=== PATIENT | female | born 1955 | race Caucasian/White ===

== ENCOUNTER 2018-01-15 07:46 | Outpatient (CLI) | payer BC, SELFPAY ==
[2018-01-16 11:00] LABS: Hepatitis C Ab w Rflx HCV PCR Negative (NEGAT)
[2018-01-16 11:06] LABS: HIV-1/2 Ag & Ab Screen Negative (NEGAT)
== END 2018-01-15 08:06 ==
PROVIDERS: PCP Internal Medicine; Visit Provider Internal Medicine
DX: Z11.59 Encounter for screening for other viral diseases (principal); Z11.4 Encounter for screening for human immunodeficiency virus [HIV]
CPT/HCPCS: 36415; 86803; 87389

== ENCOUNTER 2018-01-28 01:31 | Outpatient (CLI) | payer BC, SELFPAY ==
--- NOTE | 2018-01-28 08:30 | DI.MAMMO_ITS ---
SYMPTOMS/DIAGNOSIS: SCREENING, Z12.31 MAMMOGRAMS: Mammograms were interpreted according to the usual protocol including computer analysis with CAD system, tomosynthesis and C view imaging. Comparison is with the prior examinations. No suspicious masses or microcalcifications are seen. There has been no significant change in size of the nodular density in the upper outer quadrant of the right breast. This has been present dating back to the oldest mammogram in 2010. IMPRESSION: No evidence for malignancy. Yearly mammography is recommended. Category 2. Breast density A. MQSA ASSESSMENT OF FINDINGS: Negative with benign findings. Category 2. Patient will receive a letter notifying them of these results. BI-RAD category A. The breasts are almost entirely fatty.
== END 2018-01-28 01:51 ==
PROVIDERS: PCP Internal Medicine; Visit Provider Internal Medicine
DX: Z12.31 Encounter for screening mammogram for malignant neoplasm of breast (principal)
CPT/HCPCS: 77063; 77067

== ENCOUNTER 2018-03-12 08:16 | Day surgery (SDC) | payer BC, SELFPAY ==
[2018-03-12 08:41] VITALS: BP 147/81; PULSE 81; RESP 16; TEMP 35.6; O2SAT 98
[2018-03-12] MEDS: Lactated Ringers 1,000 ML 30 ML IV (08:52)
--- NOTE | 2018-03-12 11:09 | W.COLOREPORT ---
Date of service: 03/12/18 Time of Service: 11:10 Colonoscopy Report Date of procedure: 03/12/18 Pre-op diagnosis general: screening colonoscopy Post-op diagnosis procedure note: other (diverticulosis) Procedure: screening colonoscopy Surgeon: Inderjit Alfred III Anesthesia proc note operative: MAC Pathology: none sent Complications: None Disposition: PACU Prep: Marcelina Findings: Diverticulum Procedure Description: After informed consent was obtained the patient was taken to the procedure room and placed in a left decubitous position. Monitors were applied and a time out was done. The patients name, date of , procedure, allergies to medications and metal in their body was reviewed. The patient was then sedated. Once sedated and comfortable a rectal exam was done. External exam was normal. Internal exam revealed a normal sphincter tone and no palpable masses. The scope was then introduced and retrofelexed. no internal hemorrhoids were identified. The scope was then advanced to the cecum moderate difficulty. The TI and appendiceal orifice were identified. The prep was adequately. The scope was then slowly retracted over 10 minutes back into the rectum. No Polyps were removed. The scope was removed and the patient was woken up and taken back to Same day surgery in stable condition. The patient tolerated the procedure well and there were no immediate complications. Follow up: The patient should follow up in 10 years unless they develop changes in bowel habits or other new gastrointestinal complaints.
--- NOTE | 2018-03-12 11:12 | W.PM.DSUDISC ---
Discharge Plan Disposition Patient Disposition: HOME Condition: Stable Discharge Details Reason For Visit: Screening colonoscopy Attending Provider: Inderjit Alfred III Primary Care Provider: Carmelita Tan Home Meds and New Rx's Prescriptions: Continued bisacodyl [Dulcolax (bisacodyl)] 5 mg tablet,delayed release (DR/EC) 5 mg PO ONCE Qty: 4 RF: 0 polyethylene glycol 3350 17 gram/dose powder 255 g PO ONCE Qty: 255 RF: 0 CALCIUM 600 + D TABLET 1 EACH tablet 1 ea PO DAILY RF: 0 B-100 Complex 100 MG tablet extended release 100 mg PO DAILY RF: 0 chromium picolinate 400 MCG tablet 800 mcg PO DAILY RF: 0 omega-3 fatty acids-fish oil [Fish Oil] 1 EACH capsule 3,000 ea PO DAILY RF: 0 melatonin 5 MG tablet 10 mg PO HS RF: 0 turmeric 400 mg Capsule 400 mg PO BID RF: 0 Discharge Instructions Activity:: Activity as Tolerated Diet:: As Tolerated Discharge Orders Discharge Orders: Discharge Order (Routine); Ordered 03/12/18 Ordered By: Inderjit Alfred III DS: Diagnosis Discharge Diagnosis (1) Encounter for screening colonoscopy: Status: Acute (2) Diverticular disease of colon: Status: Acute
[2018-03-12 11:44] VITALS: BP 125/68; PULSE 65; RESP 16; TEMP 35.8; O2SAT 99
== END 2018-03-12 12:29 | disposition home or self-care (01) ==
PROVIDERS: PCP Internal Medicine; Visit Provider Surgery
PROC: 0DJD8ZZ Inspection of Lower Intestinal Tract, Via Natural or Artificial Opening Endoscopic (ICD-10-PCS; CPT 45378; principal; 2018-03-12 09:00)
DX: Z12.11 Encounter for screening for malignant neoplasm of colon (principal); K57.30 Diverticulosis of large intestine without perforation or abscess without bleeding; G47.33 Obstructive sleep apnea (adult) (pediatric)
CPT/HCPCS: 45378

== ENCOUNTER 2019-03-03 08:36 | Outpatient (CLI) | payer MEDICARE, BC, SELFPAY ==
[2019-03-03 10:02] LABS: Calculated LDL 85 mg/dL; Cholesterol 203 mg/dL (<200); HDL Cholesterol 108 mg/dL (40-60); Triglyceride 54 mg/dL (<150)
== END 2019-03-03 08:56 ==
PROVIDERS: PCP Internal Medicine; Visit Provider Internal Medicine
DX: Z00.00 Encounter for general adult medical examination without abnormal findings (principal); Z13.220 Encounter for screening for lipoid disorders
CPT/HCPCS: 36415; 80061

== ENCOUNTER 2019-03-23 01:56 | Outpatient (CLI) | payer MEDICARE, BC, SELFPAY ==
--- NOTE | 2019-03-23 16:55 | DI.DEXA_ITS ---
EXAM: XR DEXA BONE DENSITY W/WO KOLTON INDICATION: screening for osteoporosis Z78.0. COMPARISON: No exams were available for comparison TECHNIQUE: 2D digital imaging was performed. FINDINGS: The lateral image shows no compression deformities. Evaluation of the left hip shows a total T-score of -0.2 and a Z-score of 1.0. This is within normal limits. Evaluation of the lumbar spine shows a total T-score of -0.3 and a Z-score of 1.5. This is within no rmal limits. There is no evidence of osteoporosis. IMPRESSION: No evidence of osteoporosis.
== END 2019-03-23 02:16 ==
PROVIDERS: PCP Internal Medicine; Visit Provider Internal Medicine
DX: Z13.820 Encounter for screening for osteoporosis (principal); Z78.0 Asymptomatic menopausal state
CPT/HCPCS: 77080

== ENCOUNTER → 2019-04-12 09:26 | Outpatient (BNVA) | payer MEDICARE, BC, SELFPAY | PROVIDERS: PCP Internal Medicine; Referring Provider Internal Medicine; Visit Provider Nurse Practitioner Adult Health | DX: G31.84 Mild cognitive impairment of uncertain or unknown etiology (principal); F32.9 Major depressive disorder, single episode, unspecified | CPT/HCPCS: 99213 ==

== ENCOUNTER → 2019-08-03 09:27 | Outpatient (BNVA) | payer MEDICARE, BC, SELFPAY | PROVIDERS: PCP Internal Medicine; Referring Provider Internal Medicine; Visit Provider Nurse Practitioner Adult Health | DX: G31.84 Mild cognitive impairment of uncertain or unknown etiology (principal); F32.9 Major depressive disorder, single episode, unspecified | CPT/HCPCS: 99213 ==

== ENCOUNTER → 2019-09-28 13:26 | Outpatient (BNVA) | payer MEDICARE, BC, SELFPAY | PROVIDERS: PCP Internal Medicine; Referring Provider Internal Medicine; Visit Provider Nurse Practitioner Adult Health | DX: F03.90 Unspecified dementia, unspecified severity, without behavioral disturbance, psychotic disturbance, mood disturbance, and anxiety (principal) | CPT/HCPCS: 99213 ==

== ENCOUNTER → 2019-11-09 08:58 | Outpatient (BNVA) | payer MEDICARE, BC, SELFPAY | PROVIDERS: PCP Internal Medicine; Referring Provider Internal Medicine; Visit Provider Nurse Practitioner Adult Health | DX: F03.90 Unspecified dementia, unspecified severity, without behavioral disturbance, psychotic disturbance, mood disturbance, and anxiety (principal); F41.9 Anxiety disorder, unspecified | CPT/HCPCS: 99213 ==

== ENCOUNTER 2019-11-10 01:12 | Outpatient (CLI) | payer MEDICARE, BC, SELFPAY ==
--- NOTE | 2019-11-10 12:00 | DI.MAMMO_ITS ---
EXAM: MG MAMMO SCREENING CLINICAL HISTORY: screening,Z12.39 TECHNIQUE: Bilateral full field digital CC and MLO mammographic images were obtained with 3D tomosyn thesis and utilizing computer aided detection (CAD). COMPARISON: Available for comparison. FINDINGS: Masses/Architectural Distortion: There has been interval increase in size of a nodule in the outer le ft breast on the CC view. Currently the nodule measures 6 mm. Bilateral nodules are seen. Microcalcifications: No suspicious pleomorphic-type are seen. Skin Thickening/Nipple Retraction: None. IMPRESSION: 1. Interval increase in size of left breast nodule. 2. Additional views and a left breast ultrasound requested for further evaluation. BI-RADS Category 0 - Assessment Incomplete: Need additional imaging evaluation Breast Density - Category A - Almost entirely fatty A negative radiographic report should not delay biopsy if a dominant or clinically suspicious mass is present. Up to ten percent of cancers are not identified on mammography. A negative report may reinforce clinical impression. Adenosis and dense breasts may obscure an underlying neoplasm. False positive reports average 6 to 10%. Patient will receive a letter notifying them of these results.
== END 2019-11-10 01:32 ==
PROVIDERS: PCP Internal Medicine; Visit Provider Internal Medicine
DX: Z12.31 Encounter for screening mammogram for malignant neoplasm of breast (principal); N63.20 Unspecified lump in the left breast, unspecified quadrant
CPT/HCPCS: 77063; 77067

== ENCOUNTER 2019-11-16 01:44 | Outpatient (CLI) | payer MEDICARE, BC, SELFPAY ==
--- NOTE | 2019-11-16 | DI.MAMMO_ITS ---
EXAM: MG MAMMO SCREEN CALL BACK UNI CLINICAL HISTORY: F/U MAMMO, INTERVAL INCREASE IN NODULE OUTER LT BREAST ON CC VIEW TECHNIQUE: Spot compression views including C- View and tomographic imaging were performed. COMPARISON: 2012 through November 06. FINDINGS: Left CC spot compression view with tomography: . No suspicious masses or suspicious microcalcifications are seen. No persistent abnormality is seen on the additional views performed. The findings are consistent wit h overlying fibroglandular tissue. There has been no significant change from prior exams. Left breast ultrasound: The central and lateral portions of the breast were scanned. No cyst or mass is identified. IMPRESSION: BI-RADS Category 2 - Benign Findings Yearly screening mammography is recommended. Breast Density - Category A - Almost entirely fatty
== END 2019-11-16 02:04 ==
PROVIDERS: PCP Internal Medicine; Visit Provider Internal Medicine
DX: R92.8 Other abnormal and inconclusive findings on diagnostic imaging of breast (principal)
CPT/HCPCS: 76642; 77063; 77067

== ENCOUNTER → 2020-02-01 07:25 | Outpatient (BNVA) | payer MEDICARE, BC, SELFPAY | PROVIDERS: PCP Internal Medicine; Referring Provider Internal Medicine; Visit Provider Nurse Practitioner Adult Health | DX: F03.90 Unspecified dementia, unspecified severity, without behavioral disturbance, psychotic disturbance, mood disturbance, and anxiety (principal) | CPT/HCPCS: 99213; 99441 ==

== ENCOUNTER → 2020-05-02 12:29 | Outpatient (BNVA) | payer MEDICARE, BC, SELFPAY | PROVIDERS: PCP Internal Medicine; Referring Provider Internal Medicine; Visit Provider Nurse Practitioner Adult Health | DX: F03.90 Unspecified dementia, unspecified severity, without behavioral disturbance, psychotic disturbance, mood disturbance, and anxiety (principal); Z79.899 Other long term (current) drug therapy | CPT/HCPCS: 99213; 99214 ==

== ENCOUNTER → 2020-06-13 07:27 | Outpatient (BNVA) | payer MEDICARE, BC, SELFPAY | PROVIDERS: PCP Internal Medicine; Referring Provider Internal Medicine; Visit Provider Nurse Practitioner Adult Health | DX: F03.90 Unspecified dementia, unspecified severity, without behavioral disturbance, psychotic disturbance, mood disturbance, and anxiety (principal); Z79.899 Other long term (current) drug therapy | CPT/HCPCS: 99212; 99442 ==

== ENCOUNTER → 2020-10-25 11:02 | Outpatient (BNVA) | payer MEDICARE, BC, SELFPAY | PROVIDERS: PCP Internal Medicine; Referring Provider Internal Medicine; Visit Provider Nurse Practitioner Adult Health | DX: F03.90 Unspecified dementia, unspecified severity, without behavioral disturbance, psychotic disturbance, mood disturbance, and anxiety (principal); R19.7 Diarrhea, unspecified; G47.30 Sleep apnea, unspecified | CPT/HCPCS: 99213; 99214 ==

== ENCOUNTER 2020-11-10 03:23 | Outpatient (CLI) | payer MEDICARE, BC, SELFPAY ==
--- NOTE | 2020-11-10 08:15 | DI.MAMMO_ITS ---
Exam(s) MAMMO SCREENING EXAM: MAMMO SCREENING CLINICAL HISTORY: screening,z12.39 TECHNIQUE: Bilateral full field digital CC and MLO mammographic images were obtained with 3D tomosyn thesis and utilizing computer aided detection (CAD). COMPARISON: Available for comparison. FINDINGS: Masses/Architectural Distortion: None seen. Stable asymmetric breast tissue in the retroareolar regio n of the left breast. Stable nodular opacity in the upper outer quadrant of the right breast. Microcalcifications: No suspicious pleomorphic-type are seen. Skin Thickening/Nipple Retraction: None. IMPRESSION: 1. No significant interval change with no specific features of malignancy noted. 2. Unless there is more urgent need, screening mammography is recommended, as per [employer] guidelines. BI-RADS Category 2 - Benign Findings Breast Density - Category B - Scattered areas of fibroglandular density Breast density category C or D implies that the patient has dense breast tissue. Dense breast tissue is very common and is not abnormal but dense breast tissue can make it harder to find cancer on a ma mmogram. Also, dense breast tissue may increase their breast cancer risk. This information about the result of the mammogram report was provided to the patient to raise their awareness. Use this report when you speak with the patient about their risks for breast cancer, which includes their family hist ory. At that time, you may recommend for more screening tests (Ultrasound or MRI) as they might be us eful based on their risk. A negative radiographic report should not delay biopsy if a dominant or clinically suspicious mass is present. Up to ten percent of cancers are not identified on mammography. A negative report may reinforce clinical impression. Adenosis and dense breasts may obscure an underlying neoplasm. False positive reports average 6 to 10%. Patient will receive a letter notifying them of these results.
== END 2020-11-10 03:43 ==
PROVIDERS: PCP Internal Medicine; Visit Provider Internal Medicine
DX: Z12.31 Encounter for screening mammogram for malignant neoplasm of breast (principal)
CPT/HCPCS: 77063; 77067

== ENCOUNTER → 2020-11-29 11:12 | Outpatient (BNVA) | payer MEDICARE, BC, SELFPAY | PROVIDERS: PCP Internal Medicine; Visit Provider Psychiatry & Neurology Neurology | DX: F03.90 Unspecified dementia, unspecified severity, without behavioral disturbance, psychotic disturbance, mood disturbance, and anxiety (principal); G47.52 REM sleep behavior disorder | CPT/HCPCS: 99213 ==

== ENCOUNTER → 2021-05-30 10:58 | Outpatient (BNVA) | payer MEDICARE, BC, SELFPAY | PROVIDERS: PCP Internal Medicine; Visit Provider Nurse Practitioner Adult Health | DX: F03.90 Unspecified dementia, unspecified severity, without behavioral disturbance, psychotic disturbance, mood disturbance, and anxiety (principal) | CPT/HCPCS: 99213 ==

== ENCOUNTER → 2021-11-28 12:30 | Outpatient (BNVA) | payer MEDICARE, BC, SELFPAY | PROVIDERS: PCP Internal Medicine; Referring Provider Internal Medicine; Visit Provider Nurse Practitioner Adult Health | DX: F03.90 Unspecified dementia, unspecified severity, without behavioral disturbance, psychotic disturbance, mood disturbance, and anxiety (principal) | CPT/HCPCS: 99213 ==

== ENCOUNTER 2021-12-24 02:29 | Outpatient (CLI) | payer MEDICARE, BC, SELFPAY ==
[2021-12-24 10:21] LABS: Anion Gap 6.3 mmol/L (3-11); BUN 17 mg/dL (7-18); CO2 32.7 mmol/L (21.0-32.0); CREATININE 0.9 mg/dL (0.55-1.02); Calcium 9.5 mg/dL (8.5-10.1); Chloride 104 mmol/L (98-107); Estimated GFR 70.07 (mL/min/1.73m2); Glucose 90 mg/dL (74-106); Potassium 3.5 mmol/L (3.5-5.1); Sodium 143 mmol/L (136-145)
== END 2021-12-24 02:30 | disposition home or self-care (01) ==
LOC: LBO 02:29
PROVIDERS: PCP Internal Medicine; Visit Provider Nurse Practitioner Adult Health
DX: F03.90 Unspecified dementia, unspecified severity, without behavioral disturbance, psychotic disturbance, mood disturbance, and anxiety (principal); F32.9 Major depressive disorder, single episode, unspecified; F41.9 Anxiety disorder, unspecified; Z51.81 Encounter for therapeutic drug level monitoring
CPT/HCPCS: 36415; 80048

== ENCOUNTER → 2022-01-01 02:54 | Outpatient (CLI) | payer MEDICARE, BC, SELFPAY ==
--- NOTE | 2022-01-01 07:30 | DI.MAMMO_ITS ---
Exam(s) MAMMO SCREENING EXAM: MAMMO SCREENING CLINICAL HISTORY: screening,z12.39. TECHNIQUE: Bilateral full field digital CC and MLO mammographic images were obtained with 3D tomosyn thesis and utilizing computer aided detection (CAD). COMPARISON: Prior mammograms were reviewed, dating back to 2012. FINDINGS: There has been no significant change in the appearance and distribution of the fibroglandular tissue. Nodular density in the upper-outer quadrant of the right breast is unchanged from 2013 and therefore benign. In addition asymmetric density in the left breast is also unchanged from 2013 and therefore benign. There are no new spiculated masses nor malignant appearing microcalcification groups. There is no significant architectural distortion nor skin thickening-retraction. IMPRESSION: No radiographic evidence of malignancy. Stable benign findings. BI-RADS Category 2 - Benign Findings Breast Density - Category B - Scattered areas of fibroglandular density Breast density Category C or D implies that the patient has dense breast tissue. Dense breast tissue can make it harder to find cancer on a mammogram. Dense breast tissue is also associated with an incr eased risk of breast cancer. This information about the result of the mammogram report was provided to the patient to raise their awareness. Use this report when you speak with the patient about their risks for breast cancer, which includes their family history. At that time, you may recommend additional screening tests (Ultrasoun d or MRI) as these tests may add significant information. A negative radiographic report should not delay biopsy if a dominant or clinically suspicious mass is present. Up to ten percent of cancers are not identified on mammography. A negative report may reinforce clinical impression. Adenosis and dense breasts may obscure an underlying neoplasm. False positive reports average 6 to 10%. Patient will receive a letter notifying them of these results.
== END ==
PROVIDERS: PCP Internal Medicine; Visit Provider Nurse Practitioner Adult Health
DX: F03.90 Unspecified dementia, unspecified severity, without behavioral disturbance, psychotic disturbance, mood disturbance, and anxiety (principal); F32.9 Major depressive disorder, single episode, unspecified; F41.9 Anxiety disorder, unspecified; Z12.31 Encounter for screening mammogram for malignant neoplasm of breast; Z51.81 Encounter for therapeutic drug level monitoring
CPT/HCPCS: 77063; 77067

== ENCOUNTER → 2022-05-29 10:58 | Outpatient (BNVA) | payer MEDICARE, BC, SELFPAY | PROVIDERS: PCP Nurse Practitioner Adult Health; Visit Provider Nurse Practitioner Adult Health | DX: G30.9 Alzheimer's disease, unspecified (principal); F02.83 Dementia in other diseases classified elsewhere, unspecified severity, with mood disturbance | CPT/HCPCS: 99213; 99214 ==

== ENCOUNTER → 2022-07-24 15:26 | Outpatient (BNVA) | payer MEDICARE, BC, SELFPAY | PROVIDERS: PCP Nurse Practitioner Adult Health; Referring Provider Nurse Practitioner Adult Health; Visit Provider Nurse Practitioner Adult Health | DX: G30.9 Alzheimer's disease, unspecified (principal); F02.83 Dementia in other diseases classified elsewhere, unspecified severity, with mood disturbance | CPT/HCPCS: 99213 ==

== ENCOUNTER → 2022-11-19 09:58 | Outpatient (BNVA) | payer MEDICARE, BC, SELFPAY | PROVIDERS: PCP Nurse Practitioner Adult Health; Referring Provider Nurse Practitioner Adult Health; Visit Provider Nurse Practitioner Adult Health | DX: G30.9 Alzheimer's disease, unspecified (principal); F02.83 Dementia in other diseases classified elsewhere, unspecified severity, with mood disturbance | CPT/HCPCS: 99213 ==

== ENCOUNTER 2023-04-06 18:06 | Emergency (ER) | payer MEDICARE, BC, SELFPAY ==
[2023-04-06 18:06] VITALS: BP 143/68; PULSE 60; RESP 17; TEMP 36.3; O2SAT 98
--- NOTE | 2023-04-06 18:45 | DI.CT_ITS ---
Exam(s) CT HEAD CERV SPINE FACIAL WO EXAM: CT HEAD CERV SPINE FACIAL WO CLINICAL HISTORY: fall getting out of shower. TECHNIQUE: Imaging Protocol: Axial computed tomography images with coronal and sagittal reformatted images were created and reviewed COMPARISON: MR MRI - BRAIN WO CONTRAST from 02/28/2017 FINDINGS: CT Head: Ventricles and Extra axial spaces: Normal in size and morphology for the patient's age. Hemorrhage: None. Cerebral parenchyma: Normal. Midline shift: None. Brainstem/Cerebellum: Normal. Calvarium: Normal. Visualized Paranasal sinuses/Mastoids: Clear. Soft Tissues: Unremarkable. CT Face: There is artifact from the patient's dental work. Facial Bones: No definite fracture is noted in facial bones. Sinuses and Mastoids: Unremarkable. Globes, extraocular muscles, optic nerves and retrobulbar fat: Normal. Upper aerodigestive tract: Normal. Mandible and bilateral temporomandibular joints: Normal. Soft tissues: There is soft tissue edema overlying the right cheek. No focal fluid collection is see n. CT Cervical Spine: Bones: No acute fracture or subluxation. Degenerative changes are present throughout the cervical spi ne. There is reversal of the normal cervical lordosis. Soft Tissues: Unremarkable. Lung Apices: Clear. IMPRESSION: 1. No acute intracranial process. 2. No acute fracture or subluxation in the cervical spine. 3. No acute facial fracture. 4. There is mild edema in the soft tissues overlying the right cheek. RADIATION DOSE DELIVERED: 1,524.9mGy.cm Total DLP DATA REPOSITORY: All CT scans at this facility are submitted to the National Radiology Data Registry (NRDR) Dose Index Registry (DIR) with the [employer] ([employer]). RADIATION OPTIMIZATION: All CT scans at this facility use at least one of these dose optimization te chniques: automated exposure control; mA and/or kV adjustment per patient size (includes targeted exa ms where dose is matched to clinical indication); or iterative reconstruction.
--- NOTE | 2023-04-06 18:46 | W.ED.GENAD ---
HPI General Date/Time Provider Initiated Documentation: 04/06/23 18:20. HPI Narrative: 68 year-old female presents to ED today by POV/ambulating with her with a chief complaint of trip & fall getting out of the shower, hitting her R cheek during the fall, no LOC, no post-episode emesis- patient has dementia and is acting herself with onset just prior to arrival. Quality described as R cheek pain with a very mild bruise starting to form, no radiation to neck pain, severe headache, other trauma, alteration from baseline. Severity is described as unable to quantify. Palliating factors include nothing specific attempted. Provoking factors include nothing specific. Patient not anticoagulated. Related Data Home Medications Medication Instructions Recorded Confirmed vit B complex 100 combo no.2 100 100 mg PO DAILY 12/06/15 11/27/22 mg tablet,extended release (B-100 Complex ER) turmeric 400 mg capsule 400 mg PO BID 03/12/18 11/27/22 melatonin 5 mg tablet 15 mg PO HS PRN 04/12/19 11/27/22 cholecalciferol (vitamin D3) 50 50 mcg PO DAILY 02/29/20 11/27/22 mcg (2,000 unit) capsule omega-3 fatty acids 1,000 mg 2,000 mg PO DAILY 09/19/20 11/27/22 capsule calcium carbonate 600 mg-vitamin cap PO DAILY 11/29/20 11/27/22 D3 12.5 mcg (500 unit) capsule (Calcium 600 with Vitamin D3) chromium picolinate 400 mcg tablet 800 mcg PO DAILY 11/29/20 11/27/22 lactobacillus combination no.4 3 3,000 mmu cells PO DAILY 09/18/21 11/27/22 billion cell capsule (Probiotic) donepezil 10 mg tablet 10 mg PO QHS #90 tabs 03/25/22 11/27/22 bupropion HCl 150 mg 24 hr tablet, 150 mg PO QAM #90 tabs 05/06/22 11/27/22 extended release citalopram 20 mg tablet 20 mg PO DAILY #90 tabs 09/23/22 11/27/22 mirtazapine 7.5 mg tablet 7.5 mg PO QHS #90 tabs 09/23/22 11/27/22 Previous Rx's Medication Instructions Recorded donepezil 10 mg tablet 10 mg PO QHS #90 tabs 03/25/22 bupropion HCl 150 mg 24 hr tablet, 150 mg PO QAM #90 tabs 05/06/22 extended release citalopram 20 mg tablet 20 mg PO DAILY #90 tabs 09/23/22 mirtazapine 7.5 mg tablet 7.5 mg PO QHS #90 tabs 09/23/22 Allergies Allergy/AdvReac Type Severity Reaction Status Date / Time memantine [From Namenda] AdvReac Intermediate Diarrhea Verified 04/06/23 18:41 General Stated Complaint: FacialProb PATRIA: 3 Review of Systems All systems reviewed & are unremarkable except as noted in HPI and below Exam Narrative Exam Narrative: GENERAL APPEARANCE: Well-nourished, non-toxic, awake and alert, atraumatic, no acute distress. SKIN: Warm, pink, dry, intact, without rashes/lesions/ulcerations. HEAD: Normocephalic, atraumatic- no Torrez's sign, no nasal crepitus, mild R periorbital ecchymosis with stable orbit, normal hair distribution for gender/age. EYES: Pupils PERRLA, EOMs intact without nystagmus, normal conjunctiva, no exudates on lids/lashes. ENT: Nares patent, no circumoral cyanosis, no facial swelling NECK: Supple, trachea midline, painless cervical ROM, no midline vertebral tenderness/crepitus/step-offs. LUNGS/CHEST: Non-labored respirations, normal A/P diameter, symmetrical expansion, no chest wall deformity, no crepitus HEART (CV/PV): No peripheral edema, no JVD. ABDOMEN: Soft, non-distended, no guarding, no tenderness. MSK: Normal ROM, no swelling/deformity to bilateral UEs or LEs, moving all extremities without weakness, no cyanosis, spine midline without tenderness, normal curvature. NEURO: Mental Status baseline per , chronic severe dementia No facial droop, no forehead involvement. Motor: No focal weakness - strength 5/5 in bilateral UEs and LEs, proximal and distal, symmetric. Sensory: sensation intact to light touch globally. Gait normal: patient ambulated without ataxia into ED room. PSYCH: euthymic, cooperative, pleasant, appropriate speech Course Vital Signs Vital signs: Vital Signs Temperature 36.3 C L 04/06/23 18:06 Pulse 60 04/06/23 18:06 Respiratory Rate 17 04/06/23 18:06 Blood Pressure 143/68 H 04/06/23 18:06 Pulse Oximetry 98 04/06/23 18:06 Temperature 36.3 C L 04/06/23 18:06 Temperature Source Temporal Artery Scan 04/06/23 18:06 Pulse 60 04/06/23 18:06 Respiratory Rate 17 04/06/23 18:06 Respiratory Effort Normal 04/06/23 18:37 Blood Pressure 143/68 H 04/06/23 18:06 Blood Pressure Position Sitting 04/06/23 18:06 Pulse Oximetry 98 04/06/23 18:06 Oxygen Delivery Method Room Air 04/06/23 18:06 Oxygen Flow Rate 0 04/06/23 18:06 Medical Decision Making This dictation utilizes [id number] dictation software and may contain unedited grammatical errors. 68 y/o F presents to ED today with a chief complaint of trip & fall getting out of the shower, striking her R cheek, denies LOC, mentating at baseline per with significant dementia, denies neck pain, endorses facial pain, mild headache. Patients' medical history: Cognitive impairment, dementia, otherwise noncontributory. Family and social history: Noncontributory. Pertinent exam findings / vital signs include mild ecchymosis to right orbit area with orbit stable, no midline vertebral tenderness, mentating at baseline, no other trauma noted. Differential / pathologies of concern include ICH, facial fracture, concussion syndrome, vertebral fracture. Diagnostic studies of: -CT of the head, facial bones, cervical spine without contrast. -No acute fractures anywhere soft tissue swelling around the right cheek Interventions of: -None, recommend ice packs and Tylenol for headache, strict return for any sudden onset of vomiting, severe alteration from baseline. Findings not consistent with vertebral fracture, ICH, facial fracture, consistent with bruising to the right orbit from her trip and fall at home. Disposition of Contusion of Face. Patient verbalized understanding of the plan and return to ED criteria and engaged in shared decision making. Medical Records Medical records reviewed: Yes I reviewed the patient's medical records. Imaging Data Radiologic Study: Imaging: CT Scan Radiologist's impression: Exam: CT Head Without Contrast Exam date and time: 04/06/2023 7:14 PM Age: 68 years old Clinical indication: Other: Fall getting out of shower TECHNIQUE: Imaging protocol: Computed tomography of the head without contrast. COMPARISON: MRI - BRAIN WO CONTRAST 02/28/2017 2:58 PM FINDINGS: Brain: There is no evidence of intracranial hemorrhage. No mass effect or midline shift. No territorial edema. Unremarkable white matter. Cerebral ventricles: The ventricles and sulci are appropriate for the patient's age. Paranasal sinuses: There are no air-fluid levels. Mastoid air cells: The visualized mastoid air cells are well aerated. Bones/joints: No acute fracture. Soft tissues: Unremarkable. IMPRESSION: No acute findings. PROCEDURE INFORMATION: Exam: CT Maxillofacial Without Contrast Exam date and time: 04/06/2023 7:14 PM Age: 68 years old Clinical indication: Other: Fall getting out of shower TECHNIQUE: Imaging protocol: Computed tomography of the face without contrast. COMPARISON: MRI - BRAIN WO CONTRAST 02/28/2017 2:58 PM FINDINGS: Limitations: Orthodontic material projects streak artifact that limits evaluation. Orbital cavities: Orbits are normal. Globes are unremarkable. Bones/joints: No acute fracture. Paranasal sinuses: Normal. No air-fluid levels. Soft tissues: Unremarkable. Other findings: Par the anasal sinuses: Normal. No air-fluid levels. IMPRESSION: No acute findings. PROCEDURE INFORMATION: Exam: CT Cervical Spine Without Contrast Exam date and time: 04/06/2023 7:14 PM Age: 68 years old Clinical indication: Other: Fall getting out of shower TECHNIQUE: Imaging protocol: Computed tomography of the cervical spine without contrast. COMPARISON: MRI - BRAIN WO CONTRAST 02/28/2017 2:58 PM FINDINGS: Bones/joints: No acute fracture. There is normal alignment. Multilevel degenerative disc disease without significant spinal canal stenosis. Mild dextroconvex rotoscoliosis.Grade 1 anterolisthesis of C4 without associated fracture, presumed to be degenerative related. There is fusion of the left facets at C4-C5. Lungs: Lung apices are not included. Soft tissues: There are no paraspinal fluid collections or hematoma. IMPRESSION: 1. No evidence of acute fracture or acute traumatic subluxation. 2. Chronic changes as described above. Dictated and Authenticated by: Arley Barlow MD. Ordering:DELORES Valenzuela MD EXAM: CT HEAD CERV SPINE FACIAL WO CLINICAL HISTORY: fall getting out of shower. TECHNIQUE: Imaging Protocol: Axial computed tomography images with coronal and sagittal reformatted images were created and reviewed COMPARISON: MR MRI - BRAIN WO CONTRAST from 02/28/2017 FINDINGS: CT Head: Ventricles and Extra axial spaces: Normal in size and morphology for the patient's age. Hemorrhage: None. Cerebral parenchyma: Normal. Midline shift: None. Brainstem/Cerebellum: Normal. Calvarium: Normal. Visualized Paranasal sinuses/Mastoids: Clear. Soft Tissues: Unremarkable. CT Face: There is artifact from the patient's dental work. Facial Bones: No definite fracture is noted in facial bones. Sinuses and Mastoids: Unremarkable. Globes, extraocular muscles, optic nerves and retrobulbar fat: Normal. Upper aerodigestive tract: Normal. Mandible and bilateral temporomandibular joints: Normal. Soft tissues: There is soft tissue edema overlying the right cheek. No focal fluid collection is seen. CT Cervical Spine: Bones: No acute fracture or subluxation. Degenerative changes are present throughout the cervical spine. There is reversal of the normal cervical lordosis. Soft Tissues: Unremarkable. Lung Apices: Clear. IMPRESSION: 1. No acute intracranial process. 2. No acute fracture or subluxation in the cervical spine. 3. No acute facial fracture. 4. There is mild edema in the soft tissues overlying the right cheek. Quality:SDOH Health Related Social Needs: No Data to Display PFSH All Active Problems (Updated 04/06/23 @ 21:27 by LEVAR Valdovinos) Contusion of face (Acute) Anxiety (Chronic ~09/2021) Dementia (Chronic ~2019) [facility] Neuro Depression (Chronic ~2019) REM sleep behavior disorder (Chronic) Obstructive sleep apnea on CPAP (Chronic ~03/19/17) Medical History Anxiety Diverticular disease of colon (~2018) Elevated blood pressure reading in office with white coat syndrome, without diagnosis of hypertension Elevated at neurologist's, not in PCP's office; anxiety induced Mild cognitive impairment Nocturnal leg cramps Normal colonoscopy (03/12/18) Dr Inderjit Alfred, [facility], Repeat 10 years Surgical History (Reviewed 11/27/22 @ :24 by Cami Zapien NP) Abdominal hysterectomy Family History (Reviewed 11/27/22 @ :24 by Cami Zapien NP) Mother Atherosclerosis of coronary artery Father Closed fracture of hip father of cx from hip fracture Carcinoma of prostate onset age unknown Brother Hypertensive disorder, systemic arterial brother PCKD Social History (Reviewed 11/27/22 @ :24 by Cami Zapien NP) Smoking/Tobacco Use Status: Never Smoking risk assessment performed?: Yes Alcohol Intake: never Drug use: Never Substance use type: does not use Adopted: No Household members: spouse Housing: house Number of Children: 1 number of grandchildren: 1 Communication Needs: Hard of Hearing and Corrective Lenses Education Level: high school current occupation: Retired Pets and animals: Yes Pets and animals: dog(s) Do you think of yourself as: straight/heterosexual Current gender identity: female What is your relationship status?: Panel score (0-1 are the most socially isolated patients): 1 What type of physical activity do you participate in: walking Duration: 15-30 minutes/day Frequency: 5-6 times per week Seatbelt use: always Drive intox or ride w/intox driver education road instructor: No Working smoke detector in home: Yes Fire extinguisher in home: Yes Carbon monox detector in home: Yes Do you feel safe at home: Yes Do you feel safe in your relationship?: Yes Victim of physical abuse: No Victim of emotional abuse: No Victim of sexual abuse: No Discharge Plan Disposition Patient Disposition: Home Condition: Stable Discharge Details Clinical Impression: Contusion of face Primary Care Provider: Cami Zapien ED Provider: Nicolas Carlson Home Meds and New Rx's Prescriptions: Continued cholecalciferol (vitamin D3) 50 mcg (2,000 unit) capsule 50 mcg PO DAILY calcium carbonate-vitamin D3 [Calcium 600 with Vitamin D3] 600 mg(1,500mg) -500 unit capsule PO DAILY Probiotic 3 billion cell capsule 3,000 mmu cells PO DAILY Rx Instructions: administer with a meal citalopram 20 mg tablet 20 mg PO DAILY Qty: 90 3RF Rx Instructions: Note DOSE DECREASE 09/2022 mirtazapine 7.5 mg tablet 7.5 mg PO QHS Qty: 90 3RF B-100 Complex 100 MG tablet extended release 100 mg PO DAILY melatonin 5 mg tablet 15 mg PO HS PRN omega-3 fatty acids 1,000 mg capsule 2,000 mg PO DAILY Rx Instructions: 09/18/20- aim for 2000 mg daily chromium picolinate 400 mcg tablet 800 mcg PO DAILY donepezil 10 mg tablet 10 mg PO QHS Qty: 90 3RF bupropion HCl 150 mg tablet extended release 24 hr 150 mg PO QAM Qty: 90 3RF turmeric 400 mg Capsule 400 mg PO BID Discharge Instructions Instructions: Contusion in Adults (ED) Additional Instructions: You were seen in the emergency department for your 's fall while getting out of the shower, there is no significant intracranial hemorrhage, facial fracture, vertebral fracture of the neck, there is only soft tissue swelling of the right cheek, there is no fracture to the orbit around the eye. Please take Tylenol as needed for pain, apply gentle cool compresses to the area for relief of pain, please return for any other emergent concerns or future falls. Referrals: Cami Zapien NP [Primary Care Provider] - Discharge Data Discharge Date/Time-TO BE ENTERED AT DEPARTURE: 04/06/23 21:35
[2023-04-06 18:54] VITALS: BP 143/68; PULSE 60; RESP 17; TEMP 36.3; O2SAT 98
--- NOTE | 2023-04-06 21:13 | DI.VRAD_ITS ---
PROCEDURE INFORMATION: Exam: CT Head Without Contrast Exam date and time: 04/06/2023 7:14 PM Age: 68 years old Clinical indication: Other: Fall getting out of shower TECHNIQUE: Imaging protocol: Computed tomography of the head without contrast. COMPARISON: MRI - BRAIN WO CONTRAST 02/28/2017 2:58 PM FINDINGS: Brain: There is no evidence of intracranial hemorrhage. No mass effect or midline shift. No territorial edema. Unremarkable white matter. Cerebral ventricles: The ventricles and sulci are appropriate for the patient's age. Paranasal sinuses: There are no air-fluid levels. Mastoid air cells: The visualized mastoid air cells are well aerated. Bones/joints: No acute fracture. Soft tissues: Unremarkable. IMPRESSION: No acute findings. PROCEDURE INFORMATION: Exam: CT Maxillofacial Without Contrast Exam date and time: 04/06/2023 7:14 PM Age: 68 years old Clinical indication: Other: Fall getting out of shower TECHNIQUE: Imaging protocol: Computed tomography of the face without contrast. COMPARISON: MRI - BRAIN WO CONTRAST 02/28/2017 2:58 PM FINDINGS: Limitations: Orthodontic material projects streak artifact that limits evaluation. Orbital cavities: Orbits are normal. Globes are unremarkable. Bones/joints: No acute fracture. Paranasal sinuses: Normal. No air-fluid levels. Soft tissues: Unremarkable. Other findings: Par the anasal sinuses: Normal. No air-fluid levels. IMPRESSION: No acute findings. PROCEDURE INFORMATION: Exam: CT Cervical Spine Without Contrast Exam date and time: 04/06/2023 7:14 PM Age: 68 years old Clinical indication: Other: Fall getting out of shower TECHNIQUE: Imaging protocol: Computed tomography of the cervical spine without contrast. COMPARISON: MRI - BRAIN WO CONTRAST 02/28/2017 2:58 PM FINDINGS: Bones/joints: No acute fracture. There is normal alignment. Multilevel degenerative disc disease without significant spinal canal stenosis. Mild dextroconvex rotoscoliosis.Grade 1 anterolisthesis of C4 without associated fracture, presumed to be degenerative related. There is fusion of the left facets at C4-C5. Lungs: Lung apices are not included. Soft tissues: There are no paraspinal fluid collections or hematoma. IMPRESSION: 1. No evidence of acute fracture or acute traumatic subluxation. 2. Chronic changes as described above. Dictated and Authenticated by: Arley Barlow MD. Ordering:DELORES Valenzuela MD
[2023-04-06 21:55] VITALS: BP 158/70; PULSE 69; TEMP 35.3; O2SAT 98
== END 2023-04-06 21:35 | disposition home or self-care (01) ==
PROVIDERS: Emergency Provider Physician Assistant; PCP Nurse Practitioner Adult Health
DX: S00.83XA Contusion of other part of head, initial encounter (principal); F03.90 Unspecified dementia, unspecified severity, without behavioral disturbance, psychotic disturbance, mood disturbance, and anxiety; W18.2XXA Fall in (into) shower or empty bathtub, initial encounter; Y93.E1 Activity, personal bathing and showering; Y92.012 Bathroom of single-family (private) house as the place of occurrence of the external cause
CPT/HCPCS: 99284; 70450; 70486; 72125

== ENCOUNTER → 2023-05-21 08:56 | Outpatient (BNVA) | payer MEDICARE, BC, SELFPAY | PROVIDERS: PCP Nurse Practitioner Adult Health; Visit Provider Nurse Practitioner Adult Health | DX: G30.9 Alzheimer's disease, unspecified (principal); F02.83 Dementia in other diseases classified elsewhere, unspecified severity, with mood disturbance | CPT/HCPCS: 99215 ==

== ENCOUNTER → 2023-06-23 02:56 | Outpatient (CLI) | payer MEDICARE, BC, SELFPAY ==
--- NOTE | 2023-06-23 07:45 | DI.MAMMO_ITS ---
Exam(s) MG MAMMO SCREENING 60 MIN DUR EXAM: MG MAMMO SCREENING 60 MIN DUR CLINICAL HISTORY: breast cancer screening,Z12.31 TECHNIQUE: Mammograms were interpreted according to the usual protocol including computer analysis w [employer] CAD system, tomosynthesis and C-view imaging. COMPARISON: 2013 through 2021 FINDINGS: The breasts are composed of scattered fibroglandular densities, Breast Density category B. No suspicious masses or suspicious microcalcifications are seen. Stable nodule again noted in the up per outer quadrant of the right breast. Stable asymmetric density in the superior left breast. No skin thickening or abnormal axillary lymph nodes are seen. There has been no significant change from prior exams. IMPRESSION: BI-RADS Category 2 - Negative Mammogram with benign findings. Yearly screening mammography is recomm ended. Breast Density - Category B, scattered fibroglandular densities. A negative radiographic report should not delay biopsy if a dominant or clinically suspicious mass is present. Up to ten percent of cancers are not identified on mammography. A negative report may reinforce clinical impression. Adenosis and dense breasts may obscure an underlying neoplasm. False positive reports average 6 to 10%. Patient will receive a letter notifying them of these results.
== END ==
PROVIDERS: PCP Nurse Practitioner Adult Health; Visit Provider Nurse Practitioner Adult Health
DX: Z12.31 Encounter for screening mammogram for malignant neoplasm of breast
CPT/HCPCS: 77063; 77067

== ENCOUNTER → 2023-12-11 09:58 | Outpatient (BNVA) | payer MEDICARE, BC, SELFPAY | PROVIDERS: PCP Nurse Practitioner Adult Health; Visit Provider Nurse Practitioner Adult Health | DX: G30.9 Alzheimer's disease, unspecified (principal); F02.83 Dementia in other diseases classified elsewhere, unspecified severity, with mood disturbance | CPT/HCPCS: 99215 ==

== ENCOUNTER 2024-06-06 09:19 | Emergency (ER) | payer MEDICARE, BC, SELFPAY ==
--- NOTE | 2024-06-06 09:15 | DI.CT_ITS ---
Exam(s) CT HEAD CERVICAL SPINE WO EXAM: CT HEAD CERVICAL SPINE WO CLINICAL HISTORY: head trauma. TECHNIQUE: Imaging Protocol: Axial computed tomography images with coronal and sagittal reformatted images were created and reviewed COMPARISON: CT CT HEAD CERV SPINE FACIAL WO from 04/06/2023 FINDINGS: BRAIN: There is a large right posterior parietal scalp hematoma/laceration. There is air/gas in the scalp a t this level. There are no skull fractures nor fluid in the visualized paranasal sinuses. There is no evidence of intracranial hemorrhage, mass effect, or shift of midline structures. There are no extra-axial fluid collections. The ventricles are not enlarged or shifted and there is no blo od within the ventricular system nor within the basal cisterns. CERVICAL SPINE: There is no evidence of acute fracture nor listhesis. No significant prevertebral soft tissue swelli ng. There is reversal normal curvature. There is advanced chronic disc space narrowing at C 4-5, C5-6, and C6-7 levels. Small bilateral Lusc hka joint osteophytes noted at C6-7 level. Some calcification within the disc spaces noted at C2-3 l evel. There is some facet arthropathy including fusion across the C4-5 facet joints on the left side. There is no significant facet joint malalignment. No significant osseous lesions evident. IMPRESSION: No acute intracranial findings on this noninfused CT scan of the brain.Prominent posterior parietal s calp hematoma-laceration. No intracranial hemorrhage. No evidence of cervical spine fracture, malalignment, nor acute compromise of the cervical spinal can al. Multilevel chronic cervical degenerative disc disease and facet arthropathy. RADIATION DOSE DELIVERED: 1,075.27mGy.cm Total DLP DATA REPOSITORY: All CT scans at this facility are submitted to the National Radiology Data Registry (NRDR) Dose Index Registry (DIR) with the [employer] ([employer]). RADIATION OPTIMIZATION: All CT scans at this facility use at least one of these dose optimization te chniques: automated exposure control; mA and/or kV adjustment per patient size (includes targeted exa ms where dose is matched to clinical indication); or iterative reconstruction.
[2024-06-06 09:21] VITALS: BP 157/102; PULSE 73; RESP 18; TEMP 36.6; O2SAT 97
[2024-06-06 09:22] VITALS: PULSE 75; O2SAT 98
[2024-06-06 09:24] VITALS: BP 157/102; PULSE 70; O2SAT 99
[2024-06-06 09:30] VITALS: PULSE 73; O2SAT 98
[2024-06-06 09:31] VITALS: BP 149/47; PULSE 69; O2SAT 97
[2024-06-06 09:32] VITALS: PULSE 72; O2SAT 97
--- NOTE | 2024-06-06 09:40 | W.ED.GENAD ---
Discharge Plan Disposition Patient Disposition: Home Discharge Details Clinical Impression: Fall, Laceration of scalp, Dementia Primary Care Provider: Cami Zapien ED Provider: Flory Boston Home Meds and New Rx's Prescriptions: No Action citalopram 20 mg tablet 20 mg PO DAILY Qty: 90 3RF Rx Instructions: Note DOSE DECREASE 09/2022 melatonin 5 mg tablet 5 mg PO HS PRN mirtazapine 7.5 mg tablet See Rx Instructions .ROUTE .COMPLEX Qty: 90 3RF Dose Instruction: TAKE ONE TABLET BY MOUTH AT BEDTIME Rx Instructions: TAKE ONE TABLET BY MOUTH AT BEDTIME morphine concentrate 100 mg/5 mL (20 mg/mL) solution See Rx Instructions PO Q4H PRN MDD 120 mg Qty: 30 0RF Rx Instructions: 0.25-1.0 ml orally every 4 hours, as needed; HOSPICE lorazepam 1 mg tablet 1 mg PO Q4H PRN PRN (Reason: anxiety) Qty: 7 3RF Rx Instructions: hospice risperidone 0.25 mg tablet 0.25 mg PO DAILY Qty: 14 0RF Rx Instructions: Hospice give 1 hour prior to symptoms donepezil 10 mg tablet See Rx Instructions .ROUTE .COMPLEX Qty: 90 3RF Dose Instruction: TAKE ONE TABLET BY MOUTH EVERY DAY AT BEDTIME Rx Instructions: TAKE ONE TABLET BY MOUTH EVERY DAY AT BEDTIME bupropion HCl 150 mg tablet extended release 24 hr 150 mg PO DAILY Qty: 14 6RF Rx Instructions: hospice chromium picolinate 400 mcg tablet 800 mcg PO DAILY cholecalciferol (vitamin D3) [Vitamin D3] 50 mcg (2,000 unit) capsule 50 mcg PO DAILY Complex B-100 Tablet Extended Release 1 tab PO DAILY Probiotic 3 billion cell capsule 3,000 mmu cells PO DAILY Rx Instructions: administer with a meal Discharge Instructions Instructions: Laceration Repair With [facility] Additional Instructions: CT imaging today does not reveal a skull fracture or other abnormality around the brain The cut on her scalp was repaired with 3 tammy. These can be removed in 7 to 10 days by any of her providers You can apply ice pack or give Tylenol if she is having some discomfort. You can wash her hair like normal, pat dry, avoid blow dryer HPI General Date/Time Provider Initiated Documentation: 06/06/24 09:27. Limitations to Documentation: altered mental status (dementia). Information obtained by: family and EMS. HPI Narrative: 69-year-old female with past medical history of dementia presents for evaluation after fall.\\Patient has severe dementia and is unable to provide history at this time. Her fall was witnessed by family members. She was standing at the kitchen counter and lost her balance and fell backwards and hit her head against the table. There were no preceding symptoms for the fall. There was no loss of consciousness. They noted bleeding to the back of her head. EMS reports that she was able to ambulate to the ambulance out of the house. She is at her mental status baseline which is fairly poor functioning. Related Data Home Medications ?Medication ?Instructions ?Recorded ?Confirmed melatonin 5 mg tablet 5 mg PO HS PRN 04/12/19 06/06/24 mirtazapine 7.5 mg tablet See Rx Instructions .Route 10/27/23 06/06/24 .COMPLEX #90 tabs citalopram 20 mg tablet 20 mg PO DAILY #90 tabs 11/27/23 06/06/24 lorazepam 1 mg tablet 1 mg PO Q4H PRN PRN anxiety #7 tabs 12/25/23 06/06/24 morphine concentrate 100 mg/5 mL See Rx Instructions PO Q4H PRN 12/25/23 06/06/24 (20 mg/mL) oral solution pain or dyspnea #30 mL risperidone 0.25 mg tablet 0.25 mg PO DAILY #14 tabs 01/07/24 06/06/24 donepezil 10 mg tablet See Rx Instructions .Route 03/30/24 06/06/24 .COMPLEX #90 tabs bupropion HCl 150 mg 24 hr tablet, 150 mg PO DAILY #14 tabs 04/21/24 06/06/24 extended release cholecalciferol (vitamin D3) 50 50 mcg PO DAILY 06/06/24 06/06/24 mcg (2,000 unit) capsule (Vitamin D3) chromium picolinate 400 mcg tablet 800 mcg PO DAILY 06/06/24 06/06/24 lactobacillus combination no.4 3 3,000 mmu cells PO DAILY 06/06/24 06/06/24 billion cell capsule (Probiotic) vitamin B complex (Complex B-100 1 tab PO DAILY 06/06/24 06/06/24 tablet,extended release) Previous Rx's ?Medication ?Instructions ?Recorded mirtazapine 7.5 mg tablet See Rx Instructions .Route 10/27/23 .COMPLEX #90 tabs citalopram 20 mg tablet 20 mg PO DAILY #90 tabs 11/27/23 lorazepam 1 mg tablet 1 mg PO Q4H PRN PRN anxiety #7 tabs 12/25/23 morphine concentrate 100 mg/5 mL See Rx Instructions PO Q4H PRN 12/25/23 (20 mg/mL) oral solution pain or dyspnea #30 mL risperidone 0.25 mg tablet 0.25 mg PO DAILY #14 tabs 01/07/24 donepezil 10 mg tablet See Rx Instructions .Route 03/30/24 .COMPLEX #90 tabs bupropion HCl 150 mg 24 hr tablet, 150 mg PO DAILY #14 tabs 04/21/24 extended release Allergies Allergy/AdvReac Type Severity Reaction Status Date / Time memantine (From Namenda) AdvReac Intermediate Diarrhea Verified 06/06/24 09:28 General Stated Complaint: Fall/Non TraumaCriteria PATRIA: 3 Exam Narrative Exam Narrative: Review of Systems: All systems reviewed & are unremarkable except as noted in HPI and below Well-developed, no acute distress 2 cm laceration to posterior scalp, no skull deformity appreciated PERRL, normal conjunctiva C-collar in place RRR Unlabored respiratory effort clear bilaterally Nondistended abdomen , soft Pelvis stable, no extremity deformity or tenderness Laying quietly in bed, does not answer questions spontaneously moves all extremities, but is not really following commands Course Vital Signs Vital signs: Vital Signs Temperature 36.6 C 06/06/24 09:21 Pulse 73 06/06/24 09:21 Respiratory Rate 18 06/06/24 09:21 Blood Pressure 157/102 H 06/06/24 09:21 Pulse Oximetry 97 06/06/24 09:21 Temperature 36.6 C 06/06/24 09:21 Temperature Source Temporal Artery Scan 06/06/24 09:21 Pulse 73 06/06/24 09:21 Respiratory Rate 18 06/06/24 09:21 Blood Pressure 157/102 H 06/06/24 09:21 Blood Pressure Position Sitting 06/06/24 09:21 Pulse Oximetry 97 06/06/24 09:21 Oxygen Delivery Method Room Air 06/06/24 09:21 Oxygen Flow Rate 0 06/06/24 09:21 Procedure Laceration Laceration 1: Site: scalp Side (If applicable): right Description: linear Depth: simple, single layer Local anesthetic: LET(lidocaine epinephrine tetracaine) Skin layer closed with: tammy Number of sutures:: 3 Procedure Description/Note: Linear laceration without skull deformity or galea disruption, irrigated and closed with 3 tammy Medical Decision Making Written evaluation of acute closed head injury. Patient had a mechanical fall witnessed by family. I do not suspect syncope, cardiac dysrhythmia or other etiology of the fall based on their description. There is no loss of consciousness. The patient did sustain a laceration to the back of the head. Given her age and comorbidities a CT scan was obtained to evaluate for any acute intracranial process. CT imaging reviewed and radiology report reviewed. Patient has no skull fracture or acute intracranial injury. Family now at bedside the patient a little bit more verbal and cooperative. Laceration was repaired with tammy, patient tolerated well. Patient was then ambulated in the department and did well. Was smiling and laughing with family. Stable for discharge home. Wound care advice provided to family and recommend staple removal in 7 to 10 days. Quality:SDOH Health Related Social Needs: No Data to Display PFSH All Active Problems (Updated 06/06/24 @ 10:42 by Flory Boston MD) Laceration of scalp (Acute) Fall (Acute) Encounter for hospice care discussion (Acute) ACP (advance care planning) (Acute) Deficit in activities of daily living (ADL) (Acute) Urinary incontinence due to cognitive impairment (Acute ~2023) Anxiety (Chronic ~09/2021) Dementia (Chronic ~2019) [facility] Neuro Depression (Chronic ~2019) REM sleep behavior disorder (Chronic) Obstructive sleep apnea on CPAP (Chronic ~03/19/17) Medical History Unintentional weight loss Nocturnal leg cramps Anxiety Elevated blood pressure reading in office with white coat syndrome, without diagnosis of hypertension Elevated at neurologist's, not in PCP's office; anxiety induced Mild cognitive impairment Normal colonoscopy (03/12/18) Dr Inderjit Alfred, [facility], Repeat 10 years Diverticular disease of colon (~2018) Surgical History Abdominal hysterectomy Family History Mother Atherosclerosis of coronary artery Father Closed fracture of hip father of cx from hip fracture Carcinoma of prostate onset age unknown Brother Hypertensive disorder, systemic arterial brother PCKD Social History Smoking/Tobacco Use Status: Never Smoking risk assessment performed?: Yes Alcohol Intake: never Drug use: Never Substance use type: does not use Adopted: No Household members: spouse Housing: house Number of Children: 1 number of grandchildren: 1 Communication Needs: Hard of Hearing and Corrective Lenses Education Level: high school current occupation: Retired Pets and animals: Yes Pets and animals: dog(s) Do you think of yourself as: straight/heterosexual Current gender identity: female What is your relationship status?: Panel score (0-1 are the most socially isolated patients): 1 What type of physical activity do you participate in: walking Duration: 15-30 minutes/day Frequency: 5-6 times per week Seatbelt use: always Drive intox or ride w/intox wheelchair van driver: No Working smoke detector in home: Yes Fire extinguisher in home: Yes Carbon monox detector in home: Yes Do you feel safe at home: Yes Do you feel safe in your relationship?: Yes Victim of physical abuse: No Victim of emotional abuse: No Victim of sexual abuse: No
--- NOTE | 2024-06-06 10:12 | DI.VRAD_ITS ---
PROCEDURE INFORMATION: Exam: CT Head Without Contrast Exam date and time: 06/06/2024 9:45 AM Age: 69 years old Clinical indication: Other: Head trauma TECHNIQUE: Imaging protocol: Computed tomography of the head without contrast. COMPARISON: CT HEAD CERV SPINE FACIAL WO 04/06/2023 7:14 PM FINDINGS: Brain: Normal. No intraxial or extraaxial hemorrhage. No infarct visible at this time. Unremarkable white matter. No mass effect. No significant involutional change. Cerebral ventricles: Normal. No ventriculomegaly or midline shift. Pituitary gland and sella: Normal. No enlargement. Paranasal sinuses: Extensive opacification of the paranasal sinuses worst in the maxillary sinuses. Mastoid air cells: Visualized mastoid air cells are well aerated. Bones: Unremarkable. No acute fracture. Soft tissues: Large right posterior parietal scalp hematoma.. Vasculature: No significant atherosclerotic calcification. IMPRESSION: Scalp hematoma with no evidence of acute intracranial trauma. PROCEDURE INFORMATION: Exam: CT Cervical Spine Without Contrast Exam date and time: 06/06/2024 9:45 AM Age: 69 years old Clinical indication: Other: Head trauma TECHNIQUE: Imaging protocol: Computed tomography of the cervical spine without contrast. COMPARISON: CT HEAD CERV SPINE FACIAL WO 04/06/2023 7:14 PM FINDINGS: Bones: No acute fracture. There is generalized narrowing of the intervertebral disc spaces at all levels of the cervical spine. Prominent facet arthropathy throughout. Lungs: Lung apices are clear. Soft tissues: Unremarkable. No prevertebral soft tissue swelling. IMPRESSION: No acute findings. Dictated and Authenticated by: Bereket Denny MD. Orderin Darvin Jaramillo MD
[2024-06-06] MEDS: Lidocaine/Epinephri/Tetracaine Topical Gel 3 ML TP (10:30)
== END 2024-06-06 10:56 | disposition home or self-care (01) ==
PROVIDERS: Emergency Provider Emergency Medicine; PCP Nurse Practitioner Adult Health
DX: S01.01XA Laceration without foreign body of scalp, initial encounter (principal); W22.03XA Walked into furniture, initial encounter; F02.80 Dementia in other diseases classified elsewhere, unspecified severity, without behavioral disturbance, psychotic disturbance, mood disturbance, and anxiety
CPT/HCPCS: 12001; 99284; 70450; 72125; 99283